=== PATIENT | female | born 1970 | race Caucasian/White ===

== ENCOUNTER 2018-11-30 11:48 | Day surgery (SDC) | payer BC ==
[2018-11-28 08:57] VITALS: BMI 21.5
--- NOTE | 2018-11-30 09:32 | P.GSHP ---
History of Present Illness H&P Date: 11/30/18 CHIEF COMPLAINT: GERD HISTORY OF PRESENT ILLNESS: The patient is a 47-year-old female who presents reports gastroesophageal reflux disease. Upper endoscopy was offered for further evaluation and management. PAST MEDICAL HISTORY: Please see list. PAST SURGICAL HISTORY: Please see list. MEDICATIONS: Please see list. ALLERGIES: Please see list. SOCIAL HISTORY: No illicit drug use FAMILY HISTORY: No reports of Crohn disease or ulcerative colitis. REVIEW OF ORGAN SYSTEMS: CONSTITUTIONAL: No reports of fevers or chills. GI: Denies any blood in stools or constipation. PHYSICAL EXAM: VITAL SIGNS: Stable GENERAL: Well-developed and pleasant in no acute distress. HEENT: No scleral icterus. Extraocular movements grossly intact. Moist buccal mucosa. NECK: Supple without lymphadenopathy. CHEST: Unlabored respirations. Equal bilateral excursions. CARDIOVASCULAR: Regular rate and rhythm. Distal 2+ pulses. ABDOMEN: Soft, nondistended. MUSCULOSKELETAL: No clubbing, cyanosis, or edema. ASSESSMENT: 1. Gastroesophageal reflux disease PLAN: 1. Recommend proceeding with an upper endoscopy Past Medical History Past Medical History: GERD/Reflux, Hyperlipidemia, Thyroid Disorder Additional Past Medical History / Comment(s): lupus nephritis History of Any Multi-Drug Resistant Organisms: None Reported Past Surgical History: Section, Hysterectomy Past Anesthesia/Blood Transfusion Reactions: Motion Sickness, Postoperative Nausea & Vomiting (PONV) Additional Past Anesthesia/Blood Transfusion Reaction / Comment(s): sister PONV Smoking Status: Never smoker - Past Family History Mother Family Medical History: No Reported History Medications and Allergies Home Medications Medication Instructions Recorded Confirmed Type Aspirin [Adult Low Dose Aspirin EC] 81 mg PO DAILY 11/28/18 11/28/18 History Calcium Carbonate [Calcium] 600 mg PO DAILY 11/28/18 11/28/18 History Cholecalciferol (Vitamin D3) 1,000 unit PO DAILY 11/28/18 11/28/18 History [Vitamin D3] Levothyroxine Sodium [Synthroid] 125 mcg PO DAILY 11/28/18 11/28/18 History Losartan [Cozaar] 75 mg PO DAILY 11/28/18 11/28/18 History Omeprazole 40 mg PO DAILY 11/28/18 11/28/18 History Simvastatin 10 mg PO DAILY 11/28/18 11/28/18 History Spironolactone [Aldactone] 25 mg PO DAILY 11/28/18 11/28/18 History Allergies Allergy/AdvReac Type Severity Reaction Status Date / Time shellfish derived [Shellfish] Allergy Anaphylaxis Verified 11/28/18 08:49 Sulfa (Sulfonamide Allergy Rash/Hives Verified 11/28/18 08:49 Antibiotics)
[~2018-11-30 11:48] MED LIST: LACTATED RINGERS 1,000 ML IV SCH
[2018-11-30 12:27] VITALS: TEMP 97.1
[2018-11-30] MEDS ORDERED: LIDOCAINE 1% 20 ML VIAL (10MG/ML) FOR IV START INTRADERMA ONE (12:33)
[2018-11-30] MEDS ORDERED: ONDANSETRON 4 MG/2 ML VIAL IVP ONE (12:37)
[2018-11-30] MEDS ORDERED: DEXAMETHASONE SOD PHOSPHATE 10 MG/ML 1 ML VIAL IV ONE (12:40)
[2018-11-30] MEDS ORDERED: SCOPOLAMINE 1.5MG/72HR PATCH TRANSDERM ONE (12:41)
[2018-11-30] MEDS ORDERED: LIDOCAINE 1% INJ 10MG/ML (20 ML MDV) ONE (12:58)
[2018-11-30] MEDS ORDERED: PROPOFOL 10 MG/ML 20 ML VIAL IV ONE (12:58)
--- NOTE | 2018-11-30 13:12 | P.OP ---
Date of Procedure: 11/30/18 Description of Procedure: PREOPERATIVE DIAGNOSIS: Gastroesophageal reflux disease. POSTOPERATIVE DIAGNOSIS: Gastroesophageal reflux disease. Diaphragmatic hiatal hernia OPERATION: Esophagogastroduodenoscopy with biopsies along antrum. SURGEON: Rajwinder Quintanilla MD ANESTHESIA: MAC. INDICATIONS: The patient is a 47-year-old female who presents with a history of reflux disease. Benefits and risks of the procedure were described. Informed consent was obtained. DESCRIPTION: The patient was brought into the endoscopy suite and laid in the left lateral decubitus position. An Olympus gastroscope was passed along the posterior oropharynx down to the distal esophagus where the squamocolumnar junction was encountered at 30 cm from the incisors. The stomach was entered and no bile reflux was found. Additional findings are listed below. Biopsies with cold forceps were obtained of the antrum. The first through third portion of the duodenum was examined and unremarkable. Retroflexion of the scope confirmed Hill grade 3 lower esophageal valve. The squamocolumnar junction demonstrated LA grade B erosive esophagitis. The stomach was desufflated. The patient tolerated the procedure well. FINDINGS: Squamocolumnar junction 30 cm from the incisors. Diaphragmatic hiatus at 35 cm. Hiatal hernia, 5 cm Hill grade 3 lower esophageal valve. LA grade A erosive esophagitis. No active duodenitis. Chronic gastritis RECOMMENDATIONS: Upper endoscopy as needed. Plan - Discharge Summary Discharge Rx Participant: No New Discharge Prescriptions: No Action Spironolactone [Aldactone] 25 mg PO DAILY Cholecalciferol (Vitamin D3) [Vitamin D3] 1,000 unit PO DAILY Simvastatin 10 mg PO DAILY Omeprazole 40 mg PO DAILY Losartan [Cozaar] 75 mg PO DAILY Levothyroxine Sodium [Synthroid] 125 mcg PO DAILY Aspirin [Adult Low Dose Aspirin EC] 81 mg PO DAILY Calcium Carbonate [Calcium] 600 mg PO DAILY Discharge Medication List Aspirin [Adult Low Dose Aspirin EC] 81 mg PO DAILY 11/28/18 [History] Calcium Carbonate [Calcium] 600 mg PO DAILY 11/28/18 [History] Cholecalciferol (Vitamin D3) [Vitamin D3] 1,000 unit PO DAILY 11/28/18 [History] Levothyroxine Sodium [Synthroid] 125 mcg PO DAILY 11/28/18 [History] Losartan [Cozaar] 75 mg PO DAILY 11/28/18 [History] Omeprazole 40 mg PO DAILY 11/28/18 [History] Simvastatin 10 mg PO DAILY 11/28/18 [History] Spironolactone [Aldactone] 25 mg PO DAILY 11/28/18 [History] Follow up Appointment(s)/Referral(s): Rajwinder Quintanilla MD [STAFF PHYSICIAN] - 12/11/18 Patient Instructions/Handouts: *Surgery [facility] - Scopalamine Patch Instructions, Gastroesophageal Reflux Disease (DC), Hiatal Hernia (DC) Discharge Disposition: HOME SELF-CARE
[2018-11-30 13:13] VITALS: RESP 16
[2018-11-30 13:45] VITALS: BP 137/81; PULSE 69
== END 2018-11-30 13:54 | disposition home or self-care (01) ==
LOC: ORWHC2ENDO 11:48
PROVIDERS: ATTEND Surgery Plastic and Reconstructive Surgery
DX: K22.10 Ulcer of esophagus without bleeding (principal); K44.9 Diaphragmatic hernia without obstruction or gangrene; K29.50 Unspecified chronic gastritis without bleeding; K21.9 Gastro-esophageal reflux disease without esophagitis; E78.5 Hyperlipidemia, unspecified; E07.9 Disorder of thyroid, unspecified; M32.14 Glomerular disease in systemic lupus erythematosus; Z90.710 Acquired absence of both cervix and uterus; Z79.82 Long term (current) use of aspirin; Z79.890 Hormone replacement therapy; Z79.899 Other long term (current) drug therapy; Z88.2 Allergy status to sulfonamides; Z91.013 Allergy to seafood
CPT/HCPCS: 88305; 43239; J1100; J2405; J2001; J2704